=== PATIENT | female | born 1960 | race Caucasian/White ===

== ENCOUNTER 2016-06-06 11:45 | Outpatient (CLI) ==
[2015-11-13 15:40] VITALS: BMI 33.5
[2016-06-06 13:29] LABS: BASOPHILS # (AUTO) 0.1 K/uL (0-0.2); BASOPHILS % (AUTO) 1.1 % (0.0-3.0); EOSINOPHILS # (AUTO) 0.5 K/ul (0.0-0.7); EOSINOPHILS % (AUTO) 7.7 % (0.0-7.0); HEMATOCRIT 42.3 % (37.0-47.0); HEMOGLOBIN 14.1 g/dl (12.0-16.0); IMMATURE GRANULOCYTE % (AUTO) 0.2 % (0.0-5.0); LYMPHOCYTES # (AUTO) 2.1 K/uL (0.60-3.4); LYMPHOCYTES % (AUTO) 32.5 (10.0-50.0); MEAN CORPUSCULAR HEMOGLOBIN 32.1 pg (27.0-31.0); MEAN CORPUSCULAR HGB CONC 33.3 (31.8-35.4); MEAN CORPUSCULAR VOLUME 96.4 fl (81.0-99.0); MONOCYTES # (AUTO) 0.5 K/uL (0.4-2.0); MONOCYTES % (AUTO) 7.1 (0-10); NEUTROPHILS # (AUTO) 3.3 K/ul (2.0-6.9); NEUTROPHILS % (AUTO) 51.4; PLATELET COUNT 221 10^3/uL (140-440); RED BLOOD COUNT 4.39 10^6/ul (4.20-5.40); WHITE BLOOD COUNT 6.34 K/ul (4.6-10.2)
[2016-06-06 13:47] LABS: ALBUMIN/GLOBULIN RATIO 1.11; ANION GAP 16.4; BILIRUBIN,TOTAL 0.48 mg/dL (0.00-1.20); BUN/CREATININE RATIO 16.43; CALCIUM 9.9 mg/dL (8.2-10.2); CHOL/HDL RATIO 5.5 (4.5-5.5); CREATININE 0.73 mg/dL (0.60-1.30); POTASSIUM 4.4 mmol/L (3.5-5.10); TOTAL PROTEIN 7.6 g/dL (6.4-8.2)
== END 2016-06-06 11:46 | disposition home or self-care (01) ==
LOC: LAB 11:45
PROVIDERS: ATTEND Nurse Practitioner Family
DX: E11.9 Type 2 diabetes mellitus without complications (principal); E78.5 Hyperlipidemia, unspecified; G62.9 Polyneuropathy, unspecified; I10 Essential (primary) hypertension
CPT/HCPCS: 36415; 80053; 80061; 83036; 85025

== ENCOUNTER 2016-09-25 12:41 | Emergency (ER) ==
[2016-09-25 12:42] VITALS: BMI 33.5
[2016-09-25 12:53] VITALS: BP 145/87; TEMP 99.2
--- NOTE | 2016-09-25 13:52 | CT ---
EXAM: CT of the chest without contrast History: Chest pain. Comparison: Chest CT 07/23/2013 Technique: Multiplanar CT images through the thorax were obtained without the administration of IV contrast Findings: Heart size is normal. No pericardial effusion. Coronary artery calcifications. Great v essels are grossly unremarkable on this noncontrast study. No pathologically enlarged thoracic lymp h nodes. No consolidation. Dependent atelectasis. No pleural fluid and no pneumothorax. No suspic ious lung masses or lung nodules. Cholelithiasis and gallbladder distension. Right renal calculi with the largest measuring 7 mm. Co lonic diverticulosis. No acute osseous abnormalities. Impression: 1. No evidence for pneumonia. 2. Coronary artery disease. 3. Dependent atelectasis. 4. Cholelithiasis and gallbladder distension. 5. Right nephrolithiasis.
--- NOTE | 2016-09-25 14:03 | ED.PDOC ---
General ED Provider: Dr. TRICIA TERRELL Chief Complaint: Chest Wall Injury/Pain Stated Complaint: CHEST WALL PAIN LEFT SIDED Time Seen by Physician: 13:00 (1 WEEK PAIN FELT SOMETHING POP AFTER BENDING) Mode of Arrival: Walk-In Information Source: Patient Exam Limitations: No limitations [facility] Nursing and Triage Documentation Reviewed and Agree: Yes Trauma/Injury Complaint Exam - Trauma Complaint/Exam Location of Pain or Injury: Reports: Chest Mechanism of Injury: Reports: Fall Onset/Duration: 7DAYS Symptoms Are: Still present Timing of Treatment: Delayed Initial Severity: Moderate Current Severity: Mild Character: Reports: Dull Aggravating: Reports: None Alleviating: Reports: None Associated Signs and Symptoms: Denies: LOC, Confusion, Memory loss, Lethargy, Vomiting, Bleeding, Bruising, Swelling, Extremity disuse, Painful respiration, Hoarseness, Dysphagia, Hemoptysis, Significant blood loss Related History: Reports: Similar episode : No Penetrating Injury Risk Factors: Reports: None Nexus Low Risk Criteria: No post-midline CS tender, No evidence of intoxicat., No Altered LOC, No focal neuro deficit, No distracting injuries Glascow Coma Scale (see protocol): 15 Trauma Findings: Absent: [place] eyes, Hemotympanum, Nasal deformity, Dental tenderness, Dental injury, Dental malocclusion, Neck tenderness, Neck spasm, SubQ Air, Crepitus, Airway obstructed, Trachea displaced, Labored respirations, Decreased breath sounds, Muffled heart sounds, Weak pulses, Absent pulses, Abdominal distention, Pelvic tenderness Review of Systems - Review Of Systems Constitutional: Reports: No symptoms Eyes: Reports: No symptoms Ears, Nose, Mouth, Throat: Reports: No symptoms Respiratory: Reports: No symptoms Cardiac: Reports: Chest pain (WALL PAIN LEFT SIDED ) GI: Reports: No symptoms : Reports: No symptoms Musculoskeletal: Reports: No symptoms Skin: Reports: No symptoms Neurological: Reports: No symptoms Endocrine: Reports: No symptoms Hematologic/Lymphatic: Reports: No symptoms All Other Systems: Reviewed and Negative Past Medical History - Past Medical History Endocrine: Reports: DM 2, Dyslipidemia Cardiovascular: Reports: Hypertension (DR BECERRA MY HEARTIS HEALTHY A HORSE -HE DIDN'T SAY NOTHING ABOUT SMOKING) Respiratory: Reports: None Hematological: Reports: Anemia Gastrointestinal: Reports: PUD (20 years ago does not recall tests denies treatment) Genitourinary: Reports: None Neuro/Psych: Reports: Depression, Bipolar Disorder (manic depressive disorder per patient), PTSD Musculoskeletal: Reports: None Cancer: Reports: None Last Menstrual Period: NA Other Pertinent Past Medical History: PTSD, MDD - Surgical History General Surgical History: Reports: Hysterectomy ( X3, PARTIAL HYSTERECTOMY, TONSILS), , Tonsillectomy - Family History Family History: Reports: Heart (mother), Cancer (colon father) - Social History Smoking Status: Current every day smoker, Heavy tobacco smoker Hx Substance Use: No Alcohol Screening: None Physical Exam - Physical Exam Appearance: Well-appearing, No pain distress, Well-nourished Eyes: JONO, EOMI, Conjunctiva clear ENT: Ears normal, Nose normal, Oropharynx normal Respiratory: Airway patent, Breath sounds clear, Breath sounds equal, Respirations nonlabored Cardiovascular: RRR, Pulses normal, No rub, No murmur GI/: Soft, Nontender, No masses, Bowel sounds normal, No Organomegaly Musculoskeletal: Normal strength, ROM intact, No edema, No calf tenderness Skin: Warm, Dry, Normal color Neurological: Sensation intact, Motor intact, Reflexes intact, Cranial nerves intact, Alert, Oriented Psychiatric: Affect appropriate, Mood appropriate Interpretation - Radiology Interpretation Radiology Interpretation By: Radiologist Radiology Results: No acute changes Critical Care Note - Critical Care Note Total Time (mins): 0 Course - Course Orders, Labs, Meds: Orders Category Date Time Status CT CHEST W/O CONTRAST Stat RADS 09/25/16 13:03 Completed Vital Signs: Temp Pulse Resp BP Pulse Ox 09/25/16 12:45 99.2 F 93 H 18 145/87 H 95 Departure - Departure Time of Disposition: 14:03 (SEE WITH STAFF ) Disposition: HOME SELF-CARE Discharge Problem: Chest wall pain, Chest injury, Chest wall pain Instructions: Chest Wall Pain (ED), Noncardiac Chest Pain (ED) Condition: Good Pt referred to PMD for follow-up: No Allergies/Adverse Reactions: Allergies No Known Allergies Allergy (Uncoded 09/25/16 13:08) Home Medications: Ambulatory Orders Risperidone [Risperdal] 2 mg PO BID 01/23/14 Clonazepam [Klonopin] 0.5 mg PO BID #60 03/16/16 Gabapentin 600 mg PO TID 06/06/16 Hydrocodone/Acetaminophen [[place] 10-325 Tablet] 1 each PO Q8HR #12 tablet Disposition Discussed With: Patient
== END 2016-09-25 14:38 | disposition home or self-care (01) ==
LOC: ED 12:41
DX: R07.89 Other chest pain (principal); N20.0 Calculus of kidney; K80.18 Calculus of gallbladder with other cholecystitis without obstruction; W19.XXXA Unspecified fall, initial encounter; F17.210 Nicotine dependence, cigarettes, uncomplicated
CPT/HCPCS: 99283

== ENCOUNTER 2017-03-13 13:25 | Outpatient (CLI) ==
[2017-03-13 13:45] LABS: BASOPHILS # (AUTO) 0.1 K/uL (0-0.2); BASOPHILS % (AUTO) 1.1 % (0.0-3.0); EOSINOPHILS # (AUTO) 0.3 K/ul (0.0-0.7); EOSINOPHILS % (AUTO) 6.1 % (0.0-7.0); HEMATOCRIT 39.9 % (37.0-47.0); HEMOGLOBIN 13.7 g/dl (12.0-16.0); IMMATURE GRANULOCYTE % (AUTO) 0.2 % (0.0-5.0); LYMPHOCYTES # (AUTO) 1.7 K/uL (0.60-3.4); LYMPHOCYTES % (AUTO) 36.6 (10.0-50.0); MEAN CORPUSCULAR HEMOGLOBIN 32.8 pg (27.0-31.0); MEAN CORPUSCULAR HGB CONC 34.3 (31.8-35.4); MEAN CORPUSCULAR VOLUME 95.5 fl (81.0-99.0); MONOCYTES # (AUTO) 0.5 K/uL (0.4-2.0); MONOCYTES % (AUTO) 9.8 (0-10); NEUTROPHILS # (AUTO) 2.1 K/ul (2.0-6.9); NEUTROPHILS % (AUTO) 46.2; PLATELET COUNT 196 10^3/uL (140-440); RED BLOOD COUNT 4.18 10^6/ul (4.20-5.40); WHITE BLOOD COUNT 4.59 K/ul (4.6-10.2)
[2017-03-13 19:22] LABS: ALBUMIN 3.9 g/dL (3.4-5.0); ALBUMIN/GLOBULIN RATIO 1.08; ANION GAP 14.9; BILIRUBIN,TOTAL 0.81 mg/dL (0.00-1.20); BUN/CREATININE RATIO 27.69; CALCIUM 9.7 mg/dL (8.2-10.2); CHOL/HDL RATIO 5.8 (4.5-5.5); CREATININE 0.65 mg/dL (0.60-1.30); POTASSIUM 3.9 mmol/L (3.5-5.10); TOTAL PROTEIN 7.5 g/dL (6.4-8.2)
== END 2017-03-13 13:26 | disposition home or self-care (01) ==
LOC: LAB 13:25
PROVIDERS: ATTEND Nurse Practitioner Family
DX: E11.9 Type 2 diabetes mellitus without complications (principal); E78.5 Hyperlipidemia, unspecified; I25.10 Atherosclerotic heart disease of native coronary artery without angina pectoris; Z72.0 Tobacco use
CPT/HCPCS: 36415; 80053; 80061; 83036; 84443; 85025

== ENCOUNTER 2017-06-11 13:36 | Outpatient (CLI) | END 2017-06-11 13:37 | disposition home or self-care (01) | LOC: RHC-LAB 13:36 | PROVIDERS: ATTEND Nurse Practitioner Family | DX: I25.10 Atherosclerotic heart disease of native coronary artery without angina pectoris (principal); I10 Essential (primary) hypertension; E78.5 Hyperlipidemia, unspecified; E11.9 Type 2 diabetes mellitus without complications; Z72.0 Tobacco use | CPT/HCPCS: 36415; 80053; 80061; 83036; 85025 ==

== ENCOUNTER 2017-09-18 11:36 | Outpatient (CLI) | END 2017-09-18 11:37 | disposition home or self-care (01) | LOC: RHC-LAB 11:36 | PROVIDERS: ATTEND Nurse Practitioner Family | DX: E11.9 Type 2 diabetes mellitus without complications (principal); I10 Essential (primary) hypertension; E78.5 Hyperlipidemia, unspecified | CPT/HCPCS: 36415; 80053; 80061; 83036 ==

== ENCOUNTER 2018-01-02 12:39 | Outpatient (CLI) | END 2018-01-02 12:40 | disposition home or self-care (01) | LOC: RHC-LAB 12:39 | PROVIDERS: ATTEND Nurse Practitioner Family | DX: E11.9 Type 2 diabetes mellitus without complications (principal); E78.5 Hyperlipidemia, unspecified; I10 Essential (primary) hypertension | CPT/HCPCS: 36415; 80053; 80061; 83036; 85025 ==

== ENCOUNTER 2018-01-15 12:46 | Outpatient (CLI) ==
--- NOTE | 2018-01-15 14:48 | DI ---
EXAM: PA and lateral views of the chest HISTORY: Shortness of breath COMPARISON: Chest x-ray 07/23/[address] chest 09/25/2016 FINDINGS: The cardiomediastinal silhouette is normal. There is no pneumothorax or pleural effusion. There is no consolidation, nodule or mass. The osseous structures are stable. IMPRESSION: No acute cardiopulmonary process
== END 2018-01-15 12:47 | disposition home or self-care (01) ==
LOC: CAR 12:46
PROVIDERS: ATTEND Nurse Practitioner Family
DX: R06.02 Shortness of breath (principal); Z72.0 Tobacco use

== ENCOUNTER 2018-01-31 15:02 | Emergency (ER) ==
[2018-01-31 15:04] VITALS: BP 140/76; TEMP 97.5; BMI 35.2
--- NOTE | 2018-01-31 17:55 | ED.PDOC ---
General ED Provider: Dr. AN RINALDI Chief Complaint: Extremity Pain/Injury Stated Complaint: Awakened this morning with some reddness of lt distal pretibial surface with discomfort of her leg. Positive chronic edema of LLE which worsens as day progresses. Denies temperature changes. Time Seen by Physician: 17:20 Mode of Arrival: Walk-In Information Source: Patient Exam Limitations: No limitations Primary Care Provider: FERNANDO RODRIGUEZ Nursing and Triage Documentation Reviewed and Agree: Yes Does patient meet sepsis criteria?: No System Inflammatory Response Syndrome: Not Applicable Sepsis Protocol: For patient's 13 years and over: Temp is 96.8 and below OR 101 and greater Pulse >90 BPM Resp >20/minute Acutely Altered Mental Status Are patient's symptoms suggestive of a new infection, such as: -Pneumonia -Skin, Soft Tissue -Endocarditis -UTI -Bone, Joint Infection -Implantable Device -Acute Abdominal Infection -Wound Infection -Meningitis -Blood Stream Catheter Infection -Unknown Review of Systems - Review Of Systems Constitutional: Reports: Malaise Eyes: Reports: No symptoms Ears, Nose, Mouth, Throat: Reports: No symptoms Respiratory: Reports: No symptoms Cardiac: Reports: Edema GI: Reports: No symptoms : Reports: No symptoms Musculoskeletal: Reports: Muscle pain (lt leg) Skin: Reports: No symptoms Neurological: Reports: No symptoms Endocrine: Reports: No symptoms Hematologic/Lymphatic: Reports: No symptoms All Other Systems: Reviewed and Negative Past Medical History - Past Medical History Endocrine: Reports: DM 2, Dyslipidemia Cardiovascular: Reports: Hypertension (DR FELIXAYS MY HEARTIS HEALTHY A HORSE -HE DIDN'T SAY NOTHING ABOUT SMOKING) Respiratory: Reports: None Hematological: Reports: Anemia Gastrointestinal: Reports: PUD (20 years ago does not recall tests denies treatment) Genitourinary: Reports: None Neuro/Psych: Reports: Depression, Bipolar Disorder (manic depressive disorder per patient), PTSD Musculoskeletal: Reports: None Cancer: Reports: None Last Menstrual Period: HYSTERECTOMY Other Pertinent Past Medical History: PTSD, MDD - Surgical History General Surgical History: Reports: Hysterectomy ( X3, PARTIAL HYSTERECTOMY, TONSILS), , Tonsillectomy - Family History Family History: Reports: Heart (mother), Cancer (colon father) - Social History Smoking Status: Current every day smoker, Heavy tobacco smoker Hx Substance Use: No Alcohol Screening: None - Immunizations Tetanus Shot up to Date: Yes Physical Exam - Physical Exam Appearance: Ill-appearing, Obese Ill-appearing: Mild Pain Distress: Mild Eyes: JONO, EOMI, Conjunctiva clear ENT: Ears normal, Nose normal, Oropharynx normal Neck: Supple Respiratory: Airway patent, Breath sounds clear, Breath sounds equal, Respirations nonlabored Cardiovascular: RRR, Pulses normal, No rub, No murmur GI/: Soft, Nontender, No masses, Bowel sounds normal, No Organomegaly Musculoskeletal: Normal strength, ROM intact, No calf tenderness, Edema (lt pre tibial and foot-ankle) Skin: Warm, Dry, Normal color (erythrematous) Neurological: Sensation intact, Motor intact, Reflexes intact, Cranial nerves intact, Alert, Oriented Psychiatric: Affect appropriate Re-Evaluation - Re-Evaluation Time of Re-Evaluation: 18:45 Status: Improved Vital Signs Stable: Yes Appearance: NAD Lungs: Clear Skin: Warm and Dry Neuro: Alert and Oriented X3 CV: RRR Critical Care Note - Critical Care Note Total Time (mins): 0 Course - Course Hematology/Chemistry: 01/31/18 18:14 01/31/18 18:14 Orders, Labs, Meds: Lab Review 01/31/18 01/31/18 18:14 18:14 WBC 10.87 H RBC 4.39 Hgb 14.1 Hct 40.8 MCV 92.9 MCH 32.1 H MCHC 34.6 RDW Coeff of Leon 12.7 Plt Count 173 Immature Gran % (Auto) 0.4 Neut % (Auto) 74.6 Lymph % (Auto) 16.4 [place] % (Auto) 6.7 Eos % (Auto) 1.4 Baso % (Auto) 0.5 Immature Gran # (Auto) 0.0 Neut # (Auto) 8.1 H Lymph # (Auto) 1.8 [place] # (Auto) 0.7 Eos # (Auto) 0.2 Baso # (Auto) 0.1 Sodium 133.5 L Potassium 3.60 Chloride 98.7 Carbon Dioxide 24.7 Anion Gap 13.70 BUN 13.7 Creatinine 0.57 L Estimated GFR (MDRD) 110.00 BUN/Creatinine Ratio 24.03 Glucose 219.0 H Calcium 9.81 Total Bilirubin 0.73 AST 35.6 ALT 21.1 Alkaline Phosphatase 67.7 Total Protein 8.32 H Albumin 4.67 Globulin 3.65 Albumin/Globulin Ratio 1.27 Orders Category Date Time Status EKG-(ED ONLY) Stat CARDIO 01/31/18 18:04 Ordered CBC W/ AUTO DIFF Stat LAB 01/31/18 18:14 Completed CMP [COMPREHENSIVE METABOLIC PANEL] Stat LAB 01/31/18 18:14 Completed Ceftriaxone Sodium [Rocephin] MEDS 01/31/18 18:33 Discontinued 1 gm IM ONCE STA Lidocaine HCl/Pf [Lidocaine HCl 1% Sdv] MEDS 01/31/18 18:33 Discontinued 2.1 ml IM ONCE STA Medications Discontinued Medications Generic Name Dose Route Start Last Admin Trade Name Lukeq PRN Reason Stop Dose Admin Ceftriaxone Sodium 1 gm 01/31/18 18:33 01/31/18 18:53 Rocephin IM 01/31/18 18:34 1 gm ONCE STA Administration Lidocaine HCl 2.1 ml 01/31/18 18:33 01/31/18 18:53 Lidocaine Hcl 1% Sdv IM 01/31/18 18:34 5 ml ONCE STA Administration Vital Signs: Temp Pulse Resp BP Pulse Ox 01/31/18 15:03 97.5 F L 116 H 20 140/76 96 JENNIFER Risk Score JENNIFER Risk Score: Risk Score Odds of by 30D 0 0.1 (0.1-0.2) 1 0.3 (0.2-0.3) 2 0.4 (0.3-0.5) 3 0.7 (0.6-0.9) 4 1.2 (1.0-1.5) 5 2.2 (1.9-2.6) 6 3.0 (2.5-3.6) 7 4.8 (3.8-6.1) Departure - Departure Time of Disposition: 18:50 Disposition: HOME SELF-CARE Discharge Problem: Acute stasis dermatitis of left lower extremity, Cellulitis, Peripheral vascular insufficiency Instructions: Stasis Dermatitis (ED), Peripheral Vascular Disease (ED), Leg Edema (ED) Condition: Fair Pt referred to PMD for follow-up: Yes (next week) IPMP verified?: No Additional Instructions: Keep lt lower extremity elevation Monitor for edema and reddness If condition worsens return to er Allergies/Adverse Reactions: Allergies varenicline tartrate [From Chantix] Allergy (Unverified 01/31/18 15:05) rash Home Medications: Ambulatory Orders Quetiapine Fumarate [Seroquel] 100 mg PO BEDTIME 09/20/17 Cephalexin [Keflex] 500 mg PO BID #14 capsule 01/31/18 Paroxetine HCl [Paxil] 20 mg PO DAILY 01/31/18 Transfer Form Completed: No Disposition Discussed With: Patient Skin Complaint Exam - Skin Rash/Itching Complaint/Exam Onset/Duration: earlier today Symptoms Are: Still present Initial Severity: Moderate Current Severity: Moderate Location: lt pretibial surface Potential Exposures: Reports: Other Prior Treatment: no Aggravating: Reports: None Alleviating: Reports: None Associated Signs and Symptoms: Denies: Difficulty breathing, Fever, Chills Skin Findings: Present: Dry scaly skin, Lesions (Reddened and scaling -tender to touch) Differential Diagnoses: Other (venous stasis dermatitis)
[2018-01-31] MEDS ORDERED: ANCEF IM STA (18:05)
[2018-01-31] MEDS ORDERED: LIDOCAINE HCL 1% SDV IM STA (18:33)
[2018-01-31] MEDS ORDERED: ROCEPHIN IM STA (18:33)
== END 2018-01-31 19:35 | disposition home or self-care (01) ==
LOC: ED 15:02
DX: I87.2 Venous insufficiency (chronic) (peripheral) (principal); L03.119 Cellulitis of unspecified part of limb; E11.9 Type 2 diabetes mellitus without complications; E78.5 Hyperlipidemia, unspecified; I10 Essential (primary) hypertension; F17.210 Nicotine dependence, cigarettes, uncomplicated
CPT/HCPCS: 36415; 80053; 85025; 93005; 93010; 96372; 99283

== ENCOUNTER 2018-05-31 10:07 | Outpatient (CLI) ==
[2018-03-05 12:32] VITALS: BMI 34.9
== END 2018-05-31 10:08 | disposition home or self-care (01) ==
LOC: RHC-LAB 10:07
PROVIDERS: ATTEND Nurse Practitioner Family
DX: E78.5 Hyperlipidemia, unspecified (principal); E11.9 Type 2 diabetes mellitus without complications
CPT/HCPCS: 36415; 80053; 80061; 83036

== ENCOUNTER 2018-08-29 10:50 | Outpatient (CLI) ==
[2018-03-05 12:32] VITALS: BMI 34.9
== END 2018-08-29 10:51 | disposition home or self-care (01) ==
LOC: RHC-LAB 10:50
PROVIDERS: ATTEND Nurse Practitioner Family
DX: E11.9 Type 2 diabetes mellitus without complications (principal); E78.5 Hyperlipidemia, unspecified; Z72.0 Tobacco use
CPT/HCPCS: 36415; 80053; 80061; 83036; 85025

== ENCOUNTER 2018-10-11 17:15 | Emergency (ER) ==
[2018-10-11 17:19] VITALS: BP 136/83; TEMP 97
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
== END 2018-10-11 19:00 | disposition home or self-care (01) ==
LOC: ED 17:15
DX: S13.9XXA Sprain of joints and ligaments of unspecified parts of neck, initial encounter (principal); S23.8XXA Sprain of other specified parts of thorax, initial encounter; V47.6XXA Car passenger injured in collision with fixed or stationary object in traffic accident, initial encounter; F17.210 Nicotine dependence, cigarettes, uncomplicated
CPT/HCPCS: 99283

== ENCOUNTER 2021-10-13 15:48 | Observation (INO) ==
[2021-10-13] MEDS ORDERED: SODIUM CHLORIDE 1,000 ML IV STA (15:54)
--- NOTE | 2021-10-13 15:56 | ED.PDOC ---
General <GIORGIO MCINTOSH MD - Last Filed: 10/13/21 18:19> ED Provider: Dr. GIORGIO MCINTOSH MD Chief Complaint: Syncope Stated Complaint: episode of near syncope today causing her to fall on her left shoulder and flank, mild positional ache pain, no bleeding, gcs 15, no fever, hx obese, copd, htn, dm, schizophrenia Time Seen by Provider: 10/13/21 15:50 Mode of Arrival: Ambulance Information Source: Patient and EMT Primary Care Provider: JASVIR FISH APRN Sepsis Protocol: For patient's 13 years and over: Temp is 96.8 and below OR 101 and greater Pulse >90 BPM Resp >20/minute Acutely Altered Mental Status Are patient's symptoms suggestive of a new infection, such as: -Pneumonia -Skin, Soft Tissue -Endocarditis -UTI -Bone, Joint Infection -Implantable Device -Acute Abdominal Infection -Wound Infection -Meningitis -Blood Stream Catheter Infection -Unknown <ROMELIA THOMAS MD - Last Filed: 10/13/21 22:58> Nursing and Triage Documentation Reviewed and Agree: Yes Does patient meet sepsis criteria?: No System Inflammatory Response Syndrome: Not Applicable Review of Systems <GIORGIO MCINTOSH MD - Last Filed: 10/13/21 18:19> Review Of Systems Constitutional: Denies Fever Eyes: Denies Vision change Ears, Nose, Mouth, Throat: Denies Throat pain Respiratory: Denies Short of air Cardiac: Reports Chest pain GI: Reports Abdominal pain; Denies Vomiting : Denies Incontinence Musculoskeletal: Reports Joint pain Skin: Denies Cyanosis Neurological: Reports Emotional problems; Denies Cognitive dysfunction All Other Systems: Other PFSH <GIORGIO MCINTOSH MD - Last Filed: 10/13/21 18:19> Medical History Alcohol abuse, daily use Chest heaviness Colonoscopy refused Contusion, chest wall Diabetes mellitus Diabetic neuropathy Drinks beer Edema of left foot Encounter for diabetic foot exam GERD (gastroesophageal reflux disease) Hearing loss of both ears Hospital discharge follow-up Hyperlipidemia Hypertension Influenza vaccination administered at current visit Mammogram declined MDD (major depressive disorder) Nail hypertrophy Non-insulin dependent type 2 diabetes mellitus Obesity Pain, dental Papanicolaou smear declined Pneumococcal vaccination declined Pneumococcal vaccination declined Poor dentition PTSD (post-traumatic stress disorder) Family History Mother Diabetes Myocardial infarction FATHER Cancer Grandfather/Grandmother Diabetes Myocardial infarction SISTER Myocardial infarction Social History Smoking and tobacco status: Current every day smoker Tobacco type: cigarettes Tobacco: How many years used: 40 Quit status: not considering quitting Second hand smoke exposure: Yes Alcohol intake: current Alcohol intake frequency: holidays/special occasions only Alcohol type: beer Counseling given: No Substance use type: does not use Kaylah/mormonism: Denominational Special kaylah needs: No Agree to transfusion: Yes Adopted: No Caregiver/support person: Yes Foster care: No Household members: none Housing: apartment Marital status: W / Lives independently: Yes Number of children: 3 Highest education level completed: 10th grade Financial difficulty paying for basics: hard service: No Current occupational status: disabled Current occupational exposures/hazards: No Pets and animals: No Leisure activites: other History of recent travel: No Do you think of yourself as: straight/heterosexual Current gender identity: female Seatbelt use: always Helmet use: No Drives intoxicated or rides with intoxicated wrecker driver: No Water heater temperature set < 120 degrees: Yes Working smoke detector in home: Yes Fire extinguisher in home: Yes Carbon monoxide detector in home: Yes Firearms in home: No Additional social history: pt has 3 children that were adopted, they are aware who she is as they were adopted by family members. Surgical History History of section Status post hysterectomy Status post tonsillectomy Female Reproductive History Menstrual Hx Hysterectomy: Yes Hx Tubal Ligation: No Physical Exam <GIORGIO MCINTOSH MD - Last Filed: 10/13/21 18:19> Physical Exam Appearance: Reports Well-appearing Ill-appearing: None Pain Distress: Mild Eyes: Reports JONO, EOMI and Conjunctiva clear ENT: Reports Oropharynx normal Neck: Supple Respiratory: Reports Airway patent, Breath sounds clear and Breath sounds equal Cardiovascular: Reports RRR GI/: Reports Soft and Tender (no rebound) Musculoskeletal: Reports Other (tender left deltoid and chest wall, no crep) Skin: Reports Warm and Dry Neurological: Reports Alert and Oriented Psychiatric: Reports Affect appropriate Interpretation <GIORGIO MCINTOSH MD - Last Filed: 10/13/21 18:19> EKG Interpretation Time of EKG #1: 18:19 Rate: Normal Rhythm: Sinus Interpretation: no stemi <ROMELIA THOMAS MD - Last Filed: 10/13/21 22:58> Radiology Interpretation Radiology Interpretation By: Radiologist Radiology Results: Negative Exam Interpreted: CT Scan <ROMELIA THOMAS MD - Last Filed: 10/13/21 22:58> Critical Care Note Total Critical Care Time (mins): 30 Course <GIORGIO MCINTOSH MD - Last Filed: 10/13/21 18:19> Course Hematology/Chemistry: 10/13/21 16:36 10/13/21 16:36 Orders, Labs, Meds: Lab Review 10/13/21 10/13/21 10/13/21 16:36 16:36 16:36 WBC 7.08 RBC 3.67 L Hgb 11.7 L Hct 35.4 L MCV 96.5 MCH 31.9 H MCHC 33.1 RDW Coeff of Leon 12.3 Plt Count 254 Immature Gran % (Auto) 0.1 Neut % (Auto) 55.2 Lymph % (Auto) 29.7 [place] % (Auto) 8.3 Eos % (Auto) 5.9 Baso % (Auto) 0.8 Neut # (Auto) 3.9 Lymph # (Auto) 2.1 [place] # (Auto) 0.6 Eos # (Auto) 0.4 Baso # (Auto) 0.1 Immature Gran # (Auto) 0.0 PT INR Sodium 140.0 Potassium 3.98 Chloride 106.2 Carbon Dioxide 23.2 Anion Gap 14.58 BUN 14.2 Creatinine 0.58 L Estimated GFR (MDRD) 106.00 BUN/Creatinine Ratio 24.48 Glucose 112.0 H Lactic Acid 2.24 H Calcium 10.12 Total Bilirubin 0.26 AST 22.9 ALT 15.2 Alkaline Phosphatase 42.8 L Troponin I < 0.012 Total Protein 7.30 Albumin 4.25 Globulin 3.05 Albumin/Globulin Ratio 1.39 Procalcitonin Urine Color Urine Clarity Urine pH Ur Specific [place] Urine Protein Urine Glucose (UA) Urine Ketones Urine Blood Urine Nitrite Urine Bilirubin Urine Urobilinogen Ur Leukocyte Esterase Urine Microscopic RBC Urine Microscopic WBC Ur Squamous Epith Cells Urine Bacteria Urine Opiates Screen Ur Oxycodone Screen Urine Methadone Screen Ur Propoxyphene Screen Ur Barbiturates Screen U Tricyclic Antidepress Ur Phencyclidine Scrn Ur Amphetamine Screen U Methamphetamines Scrn U Benzodiazepines Scrn Urine Cocaine Screen U Cannabinoids Screen Plasma/Serum Alcohol < 10.0 SARS CoV-2 RNA Rapid SERGIO 10/13/21 10/13/21 10/13/21 16:36 16:36 17:30 WBC RBC Hgb Hct MCV MCH MCHC RDW Coeff of Leon Plt Count Immature Gran % (Auto) Neut % (Auto) Lymph % (Auto) [place] % (Auto) Eos % (Auto) Baso % (Auto) Neut # (Auto) Lymph # (Auto) [place] # (Auto) Eos # (Auto) Baso # (Auto) Immature Gran # (Auto) PT 10.4 INR 1.00 Sodium Potassium Chloride Carbon Dioxide Anion Gap BUN Creatinine Estimated GFR (MDRD) BUN/Creatinine Ratio Glucose Lactic Acid 3.06 H D Calcium Total Bilirubin AST ALT Alkaline Phosphatase Troponin I Total Protein Albumin Globulin Albumin/Globulin Ratio Procalcitonin < 0.05 Urine Color Urine Clarity Urine pH Ur Specific [place] Urine Protein Urine Glucose (UA) Urine Ketones Urine Blood Urine Nitrite Urine Bilirubin Urine Urobilinogen Ur Leukocyte Esterase Urine Microscopic RBC Urine Microscopic WBC Ur Squamous Epith Cells Urine Bacteria Urine Opiates Screen Ur Oxycodone Screen Urine Methadone Screen Ur Propoxyphene Screen Ur Barbiturates Screen U Tricyclic Antidepress Ur Phencyclidine Scrn Ur Amphetamine Screen U Methamphetamines Scrn U Benzodiazepines Scrn Urine Cocaine Screen U Cannabinoids Screen Plasma/Serum Alcohol SARS CoV-2 RNA Rapid SERGIO 10/13/21 10/13/21 10/13/21 17:30 19:04 19:04 WBC RBC Hgb Hct MCV MCH MCHC RDW Coeff of Leon Plt Count Immature Gran % (Auto) Neut % (Auto) Lymph % (Auto) [place] % (Auto) Eos % (Auto) Baso % (Auto) Neut # (Auto) Lymph # (Auto) [place] # (Auto) Eos # (Auto) Baso # (Auto) Immature Gran # (Auto) PT INR Sodium Potassium Chloride Carbon Dioxide Anion Gap BUN Creatinine Estimated GFR (MDRD) BUN/Creatinine Ratio Glucose Lactic Acid Calcium Total Bilirubin AST ALT Alkaline Phosphatase Troponin I < 0.012 Total Protein Albumin Globulin Albumin/Globulin Ratio Procalcitonin Urine Color Yellow Urine Clarity Clear Urine pH 5.5 Ur Specific [place] 1.020 Urine Protein Negative Urine Glucose (UA) Negative Urine Ketones Negative Urine Blood Trace-intact H Urine Nitrite Negative Urine Bilirubin Negative Urine Urobilinogen 0.2 Ur Leukocyte Esterase 1+ H Urine Microscopic RBC 0-2 Urine Microscopic WBC 20-30 Ur Squamous Epith Cells 0-2 Urine Bacteria 3+ Urine Opiates Screen Negative Ur Oxycodone Screen Negative Urine Methadone Screen Negative Ur Propoxyphene Screen Negative Ur Barbiturates Screen Negative U Tricyclic Antidepress Positive H Ur Phencyclidine Scrn Negative Ur Amphetamine Screen Negative U Methamphetamines Scrn Negative U Benzodiazepines Scrn Positive H Urine Cocaine Screen Negative U Cannabinoids Screen Negative Plasma/Serum Alcohol SARS CoV-2 RNA Rapid SERGIO 10/13/21 19:57 WBC RBC Hgb Hct MCV MCH MCHC RDW Coeff of Leon Plt Count Immature Gran % (Auto) Neut % (Auto) Lymph % (Auto) [place] % (Auto) Eos % (Auto) Baso % (Auto) Neut # (Auto) Lymph # (Auto) [place] # (Auto) Eos # (Auto) Baso # (Auto) Immature Gran # (Auto) PT INR Sodium Potassium Chloride Carbon Dioxide Anion Gap BUN Creatinine Estimated GFR (MDRD) BUN/Creatinine Ratio Glucose Lactic Acid Calcium Total Bilirubin AST ALT Alkaline Phosphatase Troponin I Total Protein Albumin Globulin Albumin/Globulin Ratio Procalcitonin Urine Color Urine Clarity Urine pH Ur Specific [place] Urine Protein Urine Glucose (UA) Urine Ketones Urine Blood Urine Nitrite Urine Bilirubin Urine Urobilinogen Ur Leukocyte Esterase Urine Microscopic RBC Urine Microscopic WBC Ur Squamous Epith Cells Urine Bacteria Urine Opiates Screen Ur Oxycodone Screen Urine Methadone Screen Ur Propoxyphene Screen Ur Barbiturates Screen U Tricyclic Antidepress Ur Phencyclidine Scrn Ur Amphetamine Screen U Methamphetamines Scrn U Benzodiazepines Scrn Urine Cocaine Screen U Cannabinoids Screen Plasma/Serum Alcohol SARS CoV-2 RNA Rapid SERGIO Negative Orders Category Date Time Status PLACE PATIENT OBSERVATION .TO MEDSURG (MONITORED BED ADMISSION 10/13/21 21:04 Active ) EKG-(ED ONLY) Stat CARDIO 10/13/21 15:51 Completed ACTIVITY .Up With Assistance CARE 10/13/21 21:04 Active BLOOD GLUCOSE MONITORING (MED/SURG) 0630,1100,1700,2100 CARE 10/13/21 21:06 Active GIVE HS SNACK 2100 CARE 10/13/21 21:06 Active INTAKE & OUTPUT Q8HR CARE 10/13/21 21:05 Active TELEMETRY MONITORING TELE CARE 10/13/21 21:05 Active VITAL SIGNS Q4HR CARE 10/13/21 21:05 Active ADA 1800 DAVID. DIET DIETARY 10/13/21 Breakfast Ordered HS SNACK DIETARY 10/13/21 Dinner Ordered Orthostatic Vital Signs [ED ORTHOSTATIC VITAL SIGNS] . EMERGENCY 10/13/21 17:18 Active ONCE BASIC METABOLIC PANEL DAILY@0600 LAB 10/14/21 06:00 Ordered BASIC METABOLIC PANEL DAILY@0600 LAB 10/15/21 06:00 Ordered BLOOD ALCOHOL Stat LAB 10/13/21 16:36 Completed BLOOD CULTURE (ED ONLY) Stat LAB 10/13/21 19:43 Received CBC W/ AUTO DIFF DAILY@0600 LAB 10/14/21 06:00 Ordered CBC W/ AUTO DIFF DAILY@0600 LAB 10/15/21 06:00 Ordered CBC W/ AUTO DIFF Stat LAB 10/13/21 16:36 Completed CMP [COMPREHENSIVE METABOLIC PANEL] Stat LAB 10/13/21 16:36 Completed CREATINE KINASE Q8H LAB 10/14/21 03:15 Ordered CREATINE KINASE Q8H LAB 10/14/21 11:15 Ordered DRUG SCREEN, URINE, RAPID Stat LAB 10/13/21 19:04 Completed LACTIC ACID Stat LAB 10/13/21 16:36 Completed LACTIC ACID Stat LAB 10/13/21 17:30 Completed PROCALCITONIN Stat LAB 10/13/21 16:36 Completed PT WITH INR Stat LAB 10/13/21 16:36 Completed SARS COV-2 RNA RAPID SERGIO Stat LAB 10/13/21 19:57 Completed TROPONIN I Q8H LAB 10/14/21 03:15 Ordered TROPONIN I Q8H LAB 10/14/21 11:15 Ordered TROPONIN I Stat LAB 10/13/21 16:36 Completed TROPONIN I Stat LAB 10/13/21 17:30 Completed URINALYSIS C & S IF INDICATED Stat LAB 10/13/21 19:04 Completed URINE CULTURE Stat LAB 10/13/21 19:28 Received Acetaminophen [Tylenol] MEDS 10/13/21 21:04 Ordered 650 mg PO Q4H PRN Benztropine Mesylate [Cogentin] MEDS 10/14/21 09:00 Ordered 0.5 mg PO BID Ceftriaxone/D5w 1 gm Premix [Rocephin 1 gm/50 ml D5w] MEDS 10/14/21 09:00 Ordered 1 gm in 50 ml IV DAILY Ceftriaxone/D5w 1 gm Premix [Rocephin 1 gm/50 ml D5w] MEDS 10/13/21 19:28 Discontinued 1 gm in 50 ml IV ONCE Duloxetine HCl [Cymbalta] MEDS 10/14/21 09:00 Ordered 60 mg PO BID Enoxaparin Sodium [Lovenox] MEDS 10/14/21 09:00 Ordered 40 mg SUBCUT DAILY Fenofibrate [Triglide] MEDS 10/13/21 21:30 Ordered See Dose Instructions PO .COMPLEX Hydrocodone Bit/Acetaminophen [[place] 5-325] MEDS 10/13/21 21:04 Ordered 1 tab PO Q6H PRN Hydroxyzine HCl [Atarax] MEDS 10/13/21 21:09 Ordered 25 mg PO TID PRN Lovastatin [Mevacor] MEDS 10/13/21 21:30 Ordered See Dose Instructions PO .COMPLEX Metformin HCl [Glucophage] MEDS 10/13/21 21:30 Ordered See Dose Instructions PO .COMPLEX Metoprolol Tartrate [Lopressor] MEDS 10/13/21 21:30 Ordered See Dose Instructions PO .COMPLEX Morphine Sulfate [Morphine 4 mg/ml Syringe] MEDS 10/13/21 20:06 Discontinued 4 mg IVP ONCE ONE Morphine Sulfate [Morphine 4 mg/ml Syringe] MEDS 10/13/21 21:04 Ordered 4 mg IVP Q6H PRN Nicotine 14 mg [Nicoderm 14 mg] MEDS 10/13/21 21:30 Ordered 1 patch TD QDAY Omeprazole [Prilosec] MEDS 10/13/21 21:30 Ordered See Dose Instructions PO .COMPLEX Ondansetron HCl/Pf [Zofran 4 mg/2 ml] MEDS 10/13/21 20:06 Discontinued 4 mg IVP ONCE STA Ondansetron HCl/Pf [Zofran 4 mg/2 ml] MEDS 10/13/21 21:04 Ordered 4 mg IVP Q6H PRN Prazosin HCl [Minipress] MEDS 10/13/21 21:30 Ordered 4 mg PO QHS Quetiapine Fumarate [Seroquel] MEDS 10/13/21 21:30 Ordered 300 mg PO QHS Sodium Chloride 0.9% [Sodium Chloride] 1,000 ml MEDS 10/13/21 21:30 Active IV 125 mls/hr Sodium Chloride 0.9% [Sodium Chloride] 1,000 ml MEDS 10/13/21 15:54 D iscontinued IV BOLUS gabapentin MEDS 10/14/21 09:00 Ordered 400 mg PO TID RESUSCITATION STATUS Routine OTHERS 10/13/21 21:04 Ordered CHEST, 1V AP ONLY Stat RADS 10/13/21 15:[address] ABDOMEN/PELVIS WO CONTRAST Stat RADS 10/13/21 15:[address] CERVICAL SPINE W/O CONTRAST Stat RADS 10/13/21 15:[address] CHEST W/O CONTRAST Stat RADS 10/13/21 15:[address] HEAD W/O CONTRAST Stat RADS 10/13/21 15:51 Completed SHOULDER, LEFT MIN 2V Stat RADS 10/13/21 15:51 Completed Medications Generic Name Dose Route Start Last Admin Trade Name Freq PRN Reason Stop Dose Admin Acetaminophen 650 mg 10/13/21 21:04 Acetaminophen 325 Mg Tablet PO Q4H PRN Fever and Mild Pain Hydrocodone Bitart/Acetaminophen 1 tab 10/13/21 21:04 Hydrocodone Bit/Acetaminophen 5/325 Mg Tablet PO Q6H PRN MODERATE PAIN Benztropine Mesylate 0.5 mg 10/14/21 09:00 Benztropine Mesylate 1 Mg Tablet PO BID RAVI Duloxetine HCl 60 mg 10/14/21 09:00 Duloxetine Hcl 30 Mg Capsule.Dr PO BID RAVI Enoxaparin Sodium 40 mg 10/14/21 09:00 Enoxaparin Sodium 40 Mg/0.4 Ml Syr SUBCUT DAILY RAVI Fenofibrate 0 mg 10/13/21 21:30 Fenofibrate 160 Mg Tablet PO .COMPLEX RAVI Hydroxyzine HCl 25 mg 10/13/21 21:09 Hydroxyzine Hcl 25 Mg Tablet PO TID PRN anxiety Sodium Chloride 1,000 mls @ 125 mls/hr 10/13/21 21:30 10/13/21 22:50 Sodium Chloride IV 125 mls/hr .Q8H RAVI Administration CEFTRIAXONE/D5W 1 GM PREMIX 1 gm in 50 mls @ 75 mls/hr 10/14/21 09:00 Rocephin 1 Gm/50 Ml D5w IV 10/17/21 08:59 DAILY RAVI Lovastatin 0 mg 10/13/21 21:30 Lovastatin 20 Mg Tablet PO .COMPLEX RAVI Metformin HCl 0 mg 10/13/21 21:30 Metformin Hcl 500 Mg Tablet PO .COMPLEX RAVI Metoprolol Tartrate 0 mg 10/13/21 21:30 Metoprolol Tartrate 50 Mg Tablet PO .COMPLEX RAVI Morphine Sulfate 4 mg 10/13/21 21:04 Morphine Sulfate 4 Mg/Ml Syringe IVP Q6H PRN severe pain Nicotine 1 patch 10/13/21 21:30 Nicotine 14 Mg Patch.Td24 TD QDAY [facility] Non-Formulary Medication 400 mg 10/14/21 09:00 Gabapentin PO TID RAVI Omeprazole 0 mg 10/13/21 21:30 Omeprazole 20 Mg Capsule.Dr PO .COMPLEX RAVI Ondansetron HCl 4 mg 10/13/21 21:04 Ondansetron Hcl/Pf 4 Mg/2 Ml Sdv IVP Q6H PRN Nausea / Vomiting Prazosin HCl 4 mg 10/13/21 21:30 Prazosin Hcl 1 Mg Capsule PO QHS [facility] Quetiapine Fumarate 300 mg 10/13/21 21:30 Quetiapine Fumarate 100 Mg Tablet PO QHS [facility] Discontinued Medications Generic Name Dose Route Start Last Admin Trade Name Freq PRN Reason Stop Dose Admin Sodium Chloride 1,000 mls @ 1,000 mls/hr 10/13/21 15:54 10/13/21 18:03 Sodium Chloride IV 10/13/21 16:53 1,000 mls/hr BOLUS STA Administration CEFTRIAXONE/D5W 1 GM PREMIX 1 gm in 50 mls @ 75 mls/hr 10/13/21 19:28 10/13/21 19:51 Rocephin 1 Gm/50 Ml D5w IV 10/13/21 20:07 75 mls/hr ONCE STA Administration Morphine Sulfate 4 mg 10/13/21 20:06 10/13/21 20:20 Morphine Sulfate 4 Mg/Ml Syringe IVP 10/13/21 20:07 4 mg ONCE ONE Administration Ondansetron HCl 4 mg 10/13/21 20:06 10/13/21 20:19 Ondansetron Hcl/Pf 4 Mg/2 Ml Sdv IVP 10/13/21 20:07 4 mg ONCE STA Administration Vital Signs: Temp Pulse Resp BP Pulse Ox 10/13/21 19:03 150/83 H 10/13/21 19:02 146/83 H 10/13/21 15:50 97.6 F 83 20 131/67 98 <ROMELIA THOMAS MD - Last Filed: 10/13/21 22:58> Course Orders, Labs, Meds: Lab Review 10/13/21 10/13/21 10/13/21 16:36 16:36 16:36 WBC 7.08 RBC 3.67 L Hgb 11.7 L Hct 35.4 L MCV 96.5 MCH 31.9 H MCHC 33.1 RDW Coeff of Leon 12.3 Plt Count 254 Immature Gran % (Auto) 0.1 Neut % (Auto) 55.2 Lymph % (Auto) 29.7 [place] % (Auto) 8.3 Eos % (Auto) 5.9 Baso % (Auto) 0.8 Neut # (Auto) 3.9 Lymph # (Auto) 2.1 [place] # (Auto) 0.6 Eos # (Auto) 0.4 Baso # (Auto) 0.1 Immature Gran # (Auto) 0.0 PT INR Sodium 140.0 Potassium 3.98 Chloride 106.2 Carbon Dioxide 23.2 Anion Gap 14.58 BUN 14.2 Creatinine 0.58 L Estimated GFR (MDRD) 106.00 BUN/Creatinine Ratio 24.48 Glucose 112.0 H Lactic Acid 2.24 H Calcium 10.12 Total Bilirubin 0.26 AST 22.9 ALT 15.2 Alkaline Phosphatase 42.8 L Troponin I < 0.012 Total Protein 7.30 Albumin 4.25 Globulin 3.05 Albumin/Globulin Ratio 1.39 Procalcitonin Urine Color Urine Clarity Urine pH Ur Specific [place] Urine Protein Urine Glucose (UA) Urine Ketones Urine Blood Urine Nitrite Urine Bilirubin Urine Urobilinogen Ur Leukocyte Esterase Urine Microscopic RBC Urine Microscopic WBC Ur Squamous Epith Cells Urine Bacteria Urine Opiates Screen Ur Oxycodone Screen Urine Methadone Screen Ur Propoxyphene Screen Ur Barbiturates Screen U Tricyclic Antidepress Ur Phencyclidine Scrn Ur Amphetamine Screen U Methamphetamines Scrn U Benzodiazepines Scrn Urine Cocaine Screen U Cannabinoids Screen Plasma/Serum Alcohol < 10.0 SARS CoV-2 RNA Rapid SERGIO 10/13/21 10/13/21 10/13/21 16:36 16:36 17:30 WBC RBC Hgb Hct MCV MCH MCHC RDW Coeff of Leon Plt Count Immature Gran % (Auto) Neut % (Auto) Lymph % (Auto) [place] % (Auto) Eos % (Auto) Baso % (Auto) Neut # (Auto) Lymph # (Auto) [place] # (Auto) Eos # (Auto) Baso # (Auto) Immature Gran # (Auto) PT 10.4 INR 1.00 Sodium Potassium Chloride Carbon Dioxide Anion Gap BUN Creatinine Estimated GFR (MDRD) BUN/Creatinine Ratio Glucose Lactic Acid 3.06 H D Calcium Total Bilirubin AST ALT Alkaline Phosphatase Troponin I Total Protein Albumin Globulin Albumin/Globulin Ratio Procalcitonin < 0.05 Urine Color Urine Clarity Urine pH Ur Specific [place] Urine Protein Urine Glucose (UA) Urine Ketones Urine Blood Urine Nitrite Urine Bilirubin Urine Urobilinogen Ur Leukocyte Esterase Urine Microscopic RBC Urine Microscopic WBC Ur Squamous Epith Cells Urine Bacteria Urine Opiates Screen Ur Oxycodone Screen Urine Methadone Screen Ur Propoxyphene Screen Ur Barbiturates Screen U Tricyclic Antidepress Ur Phencyclidine Scrn Ur Amphetamine Screen U Methamphetamines Scrn U Benzodiazepines Scrn Urine Cocaine Screen U Cannabinoids Screen Plasma/Serum Alcohol SARS CoV-2 RNA Rapid SERGIO 10/13/21 10/13/21 10/13/21 17:30 19:04 19:04 WBC RBC Hgb Hct MCV MCH MCHC RDW Coeff of Leon Plt Count Immature Gran % (Auto) Neut % (Auto) Lymph % (Auto) [place] % (Auto) Eos % (Auto) Baso % (Auto) Neut # (Auto) Lymph # (Auto) [place] # (Auto) Eos # (Auto) Baso # (Auto) Immature Gran # (Auto) PT INR Sodium Potassium Chloride Carbon Dioxide Anion Gap BUN Creatinine Estimated GFR (MDRD) BUN/Creatinine Ratio Glucose Lactic Acid Calcium Total Bilirubin AST ALT Alkaline Phosphatase Troponin I < 0.012 Total Protein Albumin Globulin Albumin/Globulin Ratio Procalcitonin Urine Color Yellow Urine Clarity Clear Urine pH 5.5 Ur Specific [place] 1.020 Urine Protein Negative Urine Glucose (UA) Negative Urine Ketones Negative Urine Blood Trace-intact H Urine Nitrite Negative Urine Bilirubin Negative Urine Urobilinogen 0.2 Ur Leukocyte Esterase 1+ H Urine Microscopic RBC 0-2 Urine Microscopic WBC 20-30 Ur Squamous Epith Cells 0-2 Urine Bacteria 3+ Urine Opiates Screen Negative Ur Oxycodone Screen Negative Urine Methadone Screen Negative Ur Propoxyphene Screen Negative Ur Barbiturates Screen Negative U Tricyclic Antidepress Positive H Ur Phencyclidine Scrn Negative Ur Amphetamine Screen Negative U Methamphetamines Scrn Negative U Benzodiazepines Scrn Positive H Urine Cocaine Screen Negative U Cannabinoids Screen Negative Plasma/Serum Alcohol SARS CoV-2 RNA Rapid SERGIO 10/13/21 19:57 WBC RBC Hgb Hct MCV MCH MCHC RDW Coeff of Leon Plt Count Immature Gran % (Auto) Neut % (Auto) Lymph % (Auto) [place] % (Auto) Eos % (Auto) Baso % (Auto) Neut # (Auto) Lymph # (Auto) [place] # (Auto) Eos # (Auto) Baso # (Auto) Immature Gran # (Auto) PT INR Sodium Potassium Chloride Carbon Dioxide Anion Gap BUN Creatinine Estimated GFR (MDRD) BUN/Creatinine Ratio Glucose Lactic Acid Calcium Total Bilirubin AST ALT Alkaline Phosphatase Troponin I Total Protein Albumin Globulin Albumin/Globulin Ratio Procalcitonin Urine Color Urine Clarity Urine pH Ur Specific [place] Urine Protein Urine Glucose (UA) Urine Ketones Urine Blood Urine Nitrite Urine Bilirubin Urine Urobilinogen Ur Leukocyte Esterase Urine Microscopic RBC Urine Microscopic WBC Ur Squamous Epith Cells Urine Bacteria Urine Opiates Screen Ur Oxycodone Screen Urine Methadone Screen Ur Propoxyphene Screen Ur Barbiturates Screen U Tricyclic Antidepress Ur Phencyclidine Scrn Ur Amphetamine Screen U Methamphetamines Scrn U Benzodiazepines Scrn Urine Cocaine Screen U Cannabinoids Screen Plasma/Serum Alcohol SARS CoV-2 RNA Rapid SERGIO Negative Orders Category Date Time Status PLACE PATIENT OBSERVATION .TO MEDSURG (MONITORED BED ADMISSION 10/13/21 21:04 Active ) EKG-(ED ONLY) Stat CARDIO 10/13/21 15:51 Completed ACTIVITY .Up With Assistance CARE 10/13/21 21:04 Active BLOOD GLUCOSE MONITORING (MED/SURG) 0630,1100,1700,2100 CARE 10/13/21 21:06 Active GIVE HS SNACK 2100 CARE 10/13/21 21:06 Active INTAKE & OUTPUT Q8HR CARE 10/13/21 21:05 Active TELEMETRY MONITORING TELE CARE 10/13/21 21:05 Active VITAL SIGNS Q4HR CARE 10/13/21 21:05 Active ADA 1800 DAVID. DIET DIETARY 10/13/21 Breakfast Ordered HS SNACK DIETARY 10/13/21 Dinner Ordered Orthostatic Vital Signs [ED ORTHOSTATIC VITAL SIGNS] . EMERGENCY 10/13/21 17:18 Active ONCE BASIC METABOLIC PANEL DAILY@0600 LAB 10/14/21 06:00 Ordered BASIC METABOLIC PANEL DAILY@0600 LAB 10/15/21 06:00 Ordered BLOOD ALCOHOL Stat LAB 10/13/21 16:36 Completed BLOOD CULTURE (ED ONLY) Stat LAB 10/13/21 19:43 Received CBC W/ AUTO DIFF DAILY@0600 LAB 10/14/21 06:00 Ordered CBC W/ AUTO DIFF DAILY@0600 LAB 10/15/21 06:00 Ordered CBC W/ AUTO DIFF Stat LAB 10/13/21 16:36 Completed CMP [COMPREHENSIVE METABOLIC PANEL] Stat LAB 10/13/21 16:36 Completed CREATINE KINASE Q8H LAB 10/14/21 03:15 Ordered CREATINE KINASE Q8H LAB 10/14/21 11:15 Ordered DRUG SCREEN, URINE, RAPID Stat LAB 10/13/21 19:04 Completed LACTIC ACID Stat LAB 10/13/21 16:36 Completed LACTIC ACID Stat LAB 10/13/21 17:30 Completed PROCALCITONIN Stat LAB 10/13/21 16:36 Completed PT WITH INR Stat LAB 10/13/21 16:36 Completed SARS COV-2 RNA RAPID SERGIO Stat LAB 10/13/21 19:57 Completed TROPONIN I Q8H LAB 10/14/21 03:15 Ordered TROPONIN I Q8H LAB 10/14/21 11:15 Ordered TROPONIN I Stat LAB 10/13/21 16:36 Completed TROPONIN I Stat LAB 10/13/21 17:30 Completed URINALYSIS C & S IF INDICATED Stat LAB 10/13/21 19:04 Completed URINE CULTURE Stat LAB 10/13/21 19:28 Received Acetaminophen [Tylenol] MEDS 10/13/21 21:04 Ordered 650 mg PO Q4H PRN Benztropine Mesylate [Cogentin] MEDS 10/14/21 09:00 Ordered 0.5 mg PO BID Ceftriaxone/D5w 1 gm Premix [Rocephin 1 gm/50 ml D5w] MEDS 10/14/21 09:00 Ordered 1 gm in 50 ml IV DAILY Ceftriaxone/D5w 1 gm Premix [Rocephin 1 gm/50 ml D5w] MEDS 10/13/21 19:28 Discontinued 1 gm in 50 ml IV ONCE Duloxetine HCl [Cymbalta] MEDS 10/14/21 09:00 Ordered 60 mg PO BID Enoxaparin Sodium [Lovenox] MEDS 10/14/21 09:00 Ordered 40 mg SUBCUT DAILY Fenofibrate [Triglide] MEDS 10/13/21 21:30 Ordered See Dose Instructions PO .COMPLEX Hydrocodone Bit/Acetaminophen [[place] 5-325] MEDS 10/13/21 21:04 Ordered 1 tab PO Q6H PRN Hydroxyzine HCl [Atarax] MEDS 10/13/21 21:09 Ordered 25 mg PO TID PRN Lovastatin [Mevacor] MEDS 10/13/21 21:30 Ordered See Dose Instructions PO .COMPLEX Metformin HCl [Glucophage] MEDS 10/13/21 21:30 Ordered See Dose Instructions PO .COMPLEX Metoprolol Tartrate [Lopressor] MEDS 10/13/21 21:30 Ordered See Dose Instructions PO .COMPLEX Morphine Sulfate [Morphine 4 mg/ml Syringe] MEDS 10/13/21 20:06 Discontinued 4 mg IVP ONCE ONE Morphine Sulfate [Morphine 4 mg/ml Syringe] MEDS 10/13/21 21:04 Ordered 4 mg IVP Q6H PRN Nicotine 14 mg [Nicoderm 14 mg] MEDS 10/13/21 21:30 Ordered 1 patch TD QDAY Omeprazole [Prilosec] MEDS 10/13/21 21:30 Ordered See Dose Instructions PO .COMPLEX Ondansetron HCl/Pf [Zofran 4 mg/2 ml] MEDS 10/13/21 20:06 Discontinued 4 mg IVP ONCE STA Ondansetron HCl/Pf [Zofran 4 mg/2 ml] MEDS 10/13/21 21:04 Ordered 4 mg IVP Q6H PRN Prazosin HCl [Minipress] MEDS 10/13/21 21:30 Ordered 4 mg PO QHS Quetiapine Fumarate [Seroquel] MEDS 10/13/21 21:30 Ordered 300 mg PO QHS Sodium Chloride 0.9% [Sodium Chloride] 1,000 ml MEDS 10/13/21 21:30 Active IV 125 mls/hr Sodium Chloride 0.9% [Sodium Chloride] 1,000 ml MEDS 10/13/21 15:54 Discontinued IV BOLUS gabapentin MEDS 10/14/21 09:00 Ordered 400 mg PO TID RESUSCITATION STATUS Routine OTHERS 10/13/21 21:04 Ordered CHEST, 1V AP ONLY Stat RADS 10/13/21 15:[address] ABDOMEN/PELVIS WO CONTRAST Stat RADS 10/13/21 15:[address] CERVICAL SPINE W/O CONTRAST Stat RADS 10/13/21 15:[address] CHEST W/O CONTRAST Stat RADS 10/13/21 15:[address] HEAD W/O CONTRAST Stat RADS 10/13/21 15:51 Completed SHOULDER, LEFT MIN 2V Stat RADS 10/13/21 15:51 Completed Medications Generic Name Dose Route Start Last Admin Trade Name Freq PRN Reason Stop Dose Admin Acetaminophen 650 mg 10/13/21 21:04 Acetaminophen 325 Mg Tablet PO Q4H PRN Fever and Mild Pain Hydrocodone Bitart/Acetaminophen 1 tab 10/13/21 21:04 Hydrocodone Bit/Acetaminophen 5/325 Mg Tablet PO Q6H PRN MODERATE PAIN Benztropine Mesylate 0.5 mg 10/14/21 09:00 Benztropine Mesylate 1 Mg Tablet PO BID RAVI Duloxetine HCl 60 mg 10/14/21 09:00 Duloxetine Hcl 30 Mg Capsule.Dr PO BID RAVI Enoxaparin Sodium 40 mg 10/14/21 09:00 Enoxaparin Sodium 40 Mg/0.4 Ml Syr SUBCUT DAILY RAVI Fenofibrate 0 mg 10/13/21 21:30 Fenofibrate 160 Mg Tablet PO .COMPLEX RAVI Hydroxyzine HCl 25 mg 10/13/21 21:09 Hydroxyzine Hcl 25 Mg Tablet PO TID PRN anxiety Sodium Chloride 1,000 mls @ 125 mls/hr 10/13/21 21:30 10/13/21 22:50 Sodium Chloride IV 125 mls/hr .Q8H RAVI Administration CEFTRIAXONE/D5W 1 GM PREMIX 1 gm in 50 mls @ 75 mls/hr 10/14/21 09:00 Rocephin 1 Gm/50 Ml D5w IV 10/17/21 08:59 DAILY RAVI Lovastatin 0 mg 10/13/21 21:30 Lovastatin 20 Mg Tablet PO .COMPLEX RAVI Metformin HCl 0 mg 10/13/21 21:30 Metformin Hcl 500 Mg Tablet PO .COMPLEX RAVI Metoprolol Tartrate 0 mg 10/13/21 21:30 Metoprolol Tartrate 50 Mg Tablet PO .COMPLEX RAVI Morphine Sulfate 4 mg 10/13/21 21:04 Morphine Sulfate 4 Mg/Ml Syringe IVP Q6H PRN severe pain Nicotine 1 patch 10/13/21 21:30 Nicotine 14 Mg Patch.Td24 TD QDAY RAVI Non-Formulary Medication 400 mg 10/14/21 09:00 Gabapentin PO TID RAVI Omeprazole 0 mg 10/13/21 21:30 Omeprazole 20 Mg Capsule. PO .COMPLEX RAVI Ondansetron HCl 4 mg 10/13/21 21:04 Ondansetron Hcl/Pf 4 Mg/2 Ml Sdv IVP Q6H PRN Nausea / Vomiting Prazosin HCl 4 mg 10/13/21 21:30 Prazosin Hcl 1 Mg Capsule PO QHS [facility] Quetiapine Fumarate 300 mg 10/13/21 21:30 Quetiapine Fumarate 100 Mg Tablet PO QHS [facility] Discontinued Medications Generic Name Dose Route Start Last Admin Trade Name Freq PRN Reason Stop Dose Admin Sodium Chloride 1,000 mls @ 1,000 mls/hr 10/13/21 15:54 10/13/21 18:03 Sodium Chloride IV 10/13/21 16:53 1,000 mls/hr BOLUS STA Administration CEFTRIAXONE/D5W 1 GM PREMIX 1 gm in 50 mls @ 75 mls/hr 10/13/21 19:28 10/13/21 19:51 Rocephin 1 Gm/50 Ml D5w IV 10/13/21 20:07 75 mls/hr ONCE STA Administration Morphine Sulfate 4 mg 10/13/21 20:06 10/13/21 20:20 Morphine Sulfate 4 Mg/Ml Syringe IVP 10/13/21 20:07 4 mg ONCE ONE Administration Ondansetron HCl 4 mg 10/13/21 20:06 10/13/21 20:19 Ondansetron Hcl/Pf 4 Mg/2 Ml Sdv IVP 10/13/21 20:07 4 mg ONCE STA Administration Vital Signs: Temp Pulse Resp BP Pulse Ox 10/13/21 19:03 150/83 H 10/13/21 19:02 146/83 H 10/13/21 15:50 97.6 F 83 20 131/67 98 Discharge Plan Discharge ED Provider: GIORGIO MCINTOSH <GIORGIO MCINTOSH MD - Last Filed: 10/13/21 18:19> Physician Progress Note: care to Dr Thomas at 19:00 []
--- NOTE | 2021-10-13 16:36 | CT ---
Exam: Chest CT without contrast. Technique: Chest CT was performed without contrast. Multiplanar reformats were made. History: Fall. Comparison: CT chest 05/08/2020. FINDINGS: Lungs/Pleura: No acute lung injury or pneumothorax. Trace dependent atelectasis in the lower lobes. No pleural effusion. Mediastinum: No hematoma. Cardiovascular: No pericardial effusion. Calcified atherosclerosis of the aorta and coronaries. No ev idence of aortic injury. 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 Chest wall, thoracic inlet, and axillae: No hematoma or mass. Imaged upper abdomen and GE junction: Cholelithiasis. Bones: No acute fracture. IMPRESSION: 1. No acute chest injury. 2. Calcific atherosclerosis. 3. Cholelithiasis. All CT scans are performed using dose optimization techniques as appropriate to the performed exam an d include at least one of the following: Automated exposure control, adjustment of the mA and/or kV according t o size, and the use of iterative reconstruction technique.
--- NOTE | 2021-10-13 16:37 | CT ---
EXAM: CT cervical spine without contrast. HISTORY: Fall COMPARISON: CT cervical spine 09/15/2027 TECHNIQUE: Serial axial images of the cervical spine were obtained from the skull base through the l maricel apices without contrast. These were viewed in multiple planes. FINDINGS: Vertebral bodies demonstrate straightening of the cervical spine. There is no acute compr ession fracture or subluxation. There is narrowing of the disc space at C4 through C7 with anterior posterior disc osteophytes. Moderate facet arthropathy is noted and most pronounced on the right. T here is no central or neural foraminal narrowing. IMPRESSION: 1. No acute compression fracture or subluxation. 2. Moderate multilevel degenerative disease of the cervical spine. No significant interval change when compared to prior examination. All CT scans are performed using dose optimization techniques as appropriate to the performed exam an d include at least one of the following: Automated exposure control, adjustment of the mA and/or kV according t o size, and the use of iterative reconstruction technique.
--- NOTE | 2021-10-13 16:37 | CT ---
EXAM: CT head without contrast TECHNIQUE: Noncontrast CT of the head with multiple reformats. HISTORY: Near syncope. Fall. COMPARISON: CT head 09/15/2019. FINDINGS: No evidence of acute infarction, hemorrhage, or mass. Mild brain volume loss. Mild nonspecific white matter hypodensities likely due to chronic microvascu lar ischemic changes. Calcific atherosclerosis of the carotid siphons and left vertebral artery. No brain herniation. Patent basilar cisterns. Ventricles are proportional to brain volume. No acute osseous abnormality. Orbits are unremarkable. Moderate congestion and mucosal thickening in the paranasal sinuses. IMPRESSION: 1. No acute intracranial abnormality. 2. Moderate sinus congestion suggests sinusitis. 3. Senescent changes. All CT scans are performed using dose optimization techniques as appropriate to the performed exam an d include at least one of the following: Automated exposure control, adjustment of the mA and/or kV according t o size, and the use of iterative reconstruction technique.
--- NOTE | 2021-10-13 16:41 | CT ---
EXAM: CT of the abdomen and pelvis without contrast. TECHNIQUE: CT of the abdomen and pelvis was performed without the use of contrast. Multiplanar refo rmats were performed. HISTORY: Fall. Near-syncope. COMPARISON: CT abdomen pelvis 05/08/2020. FINDINGS: Evaluation of solid organs and blood vessels is suboptimal without the benefit of contrast. Imaged lower thorax: Coronary calcifications. Liver: Unremarkable. Gallbladder/Bile Ducts: No biliary dilation. Cholelithiasis. Spleen: Unremarkable. Pancreas: Unremarkable. Adrenals: Unremarkable. Kidneys/Ureters: Right renal stones measure up to 10 mm. No stone in the ureters or hydronephrosis. No evidence of renal injury. Bowel/mesentery/peritoneum: No evidence of bowel injury. No mesenteric hematoma. Colonic diverticulo sis. No free air of ascites. Retroperitoneum/vessels: No aortic aneurysm. Extensive calcified atheromatous plaques. No evidence o f abdominal aortic injury or retroperitoneal hematoma. Pelvis: Post hysterectomy. No pelvic hematoma. Bones/body wall: No acute fracture. Multilevel degenerative changes of the lumbar spine. Transition al lumbosacral anatomy. IMPRESSION: 1. No acute injury in the abdomen pelvis. 2. Cholelithiasis. 3. Right renal stones measure up to 10 mm. 4. Colonic diverticulosis. 5. Extensive calcific atherosclerosis and coronary calcifications. All CT scans are performed using dose optimization techniques as appropriate to the performed exam an d include at least one of the following: Automated exposure control, adjustment of the mA and/or kV according t o size, and the use of iterative reconstruction technique.
[2021-10-13 16:42] LABS: BASOPHILS # (AUTO) 0.1 K/uL (0-0.2); BASOPHILS % (AUTO) 0.8 % (0.0-3.0); EOSINOPHILS # (AUTO) 0.4 K/ul (0.0-0.7); EOSINOPHILS % (AUTO) 5.9 % (0.0-7.0); HEMATOCRIT 35.4 % (37.0-47.0); HEMOGLOBIN 11.7 g/dl (12.0-16.0); IMMATURE GRANULOCYTE % (AUTO) 0.1 % (0.0-5.0); LYMPHOCYTES # (AUTO) 2.1 K/uL (0.60-3.4); LYMPHOCYTES % (AUTO) 29.7 (10.0-50.0); MEAN CORPUSCULAR HEMOGLOBIN 31.9 pg (27.0-31.0); MEAN CORPUSCULAR HGB CONC 33.1 (31.8-35.4); MEAN CORPUSCULAR VOLUME 96.5 fl (81.0-99.0); MONOCYTES # (AUTO) 0.6 K/uL (0.4-2.0); MONOCYTES % (AUTO) 8.3 (0-10); NEUTROPHILS # (AUTO) 3.9 K/ul (2.0-6.9); NEUTROPHILS % (AUTO) 55.2 % (42.2-75.2); PLATELET COUNT 254 10^3/uL (140-440); RDW COEFFICIENT OF VARIATION 12.3 % (11.6-14.8); RED BLOOD COUNT 3.67 10^6/ul (4.20-5.40); WHITE BLOOD COUNT 7.08 K/ul (4.6-10.2)
--- NOTE | 2021-10-13 16:43 | DI ---
EXAM: Single AP view of the chest HISTORY: Fall. COMPARISON: Chest x-ray 01/15/2018 FINDINGS: Cardiomediastinal silhouette is unremarkable. There is no pneumothorax or effusion. There is no consolidation, nodule or mass. The osseous structures are unremarkable. IMPRESSION: No acute cardiopulmonary process
--- NOTE | 2021-10-13 16:43 | DI ---
EXAM: Left shoulder, three views HISTORY: Fall fall COMPARISON: 10/13/2021. FINDINGS / IMPRESSION: The visualized osseous structures appear intact. Anatomic alignment appears within normal limits. There is no evidence of fracture or dislocation. Mild chronic osteoarthritic degenerative change. No acute osseous abnormality.
[2021-10-13 16:53] LABS: PROTHROMBIN TIME 10.4 SEC (9.3-11.0)
[2021-10-13 17:02] LABS: ALANINE AMINOTRANSFERASE 15.2 U/L (0-35); ALBUMIN 4.25 g/dL (3.5-5.0); ALKALINE PHOSPHATASE 42.8 U/L (53-141); ASPARTATE AMINO TRANSFERASE 22.9 U/L (14-36); BILIRUBIN,TOTAL 0.26 mg/dL (0.2-1.3); BLOOD UREA NITROGEN 14.2 mg/dL (7-17); CALCIUM 10.12 mg/dL (8.4-10.2); CARBON DIOXIDE 23.2 mmol/L (22-30.0); CHLORIDE 106.2 mmol/L (98-107); CREATININE 0.58 mg/dL (0.60-1.30); POTASSIUM 3.98 mmol/L (3.5-5.1)
[2021-10-13 17:03] LABS: BLOOD ALCOHOL < 10.0 mg/dL (0.0-50.0)
[2021-10-13 17:11] LABS: TROPONIN I < 0.012 ng/ml (0.0000-0.120)
[2021-10-13 19:23] LABS: BILIRUBIN,URINE Negative (NEGATIVE); CLARITY,URINE Clear (CLEAR); COLOR,URINE Yellow (YELLOW); GLUCOSE, URINE (UA) Negative (NEGATIVE); KETONES,URINE Negative (NEGATIVE); LEUKOCYTE ESTERASE ,URINE 1+ (NEGATIVE); NITRITE,URINE Negative (NEGATIVE); PH,URINE 5.5 (5-9); PROTEIN,URINE Negative (NEGATIVE); URINE, BLOOD Trace-intact (NEGATIVE); UROBILINOGEN,URINE 0.2 (0.2)
[2021-10-13 19:27] LABS: BACTERIA,URINE 3+ (NOT PRESENT); SQUAMOUS EPITHELIAL CELL,UR 0-2 (0-5); URINE RBC, MICROSCOPIC 0-2 (0-2); URINE WBC, MICROSCOPIC 20-30 (0-2)
[2021-10-13] MEDS ORDERED: ROCEPHIN 1 GM/50 ML D5W 1 GM/50 ML BAG IV STA (19:28)
[2021-10-13 19:29] LABS: BENZODIAZEPINES SCREEN,URINE POSITIVE (NEGATIVE)
[2021-10-13 19:30] LABS: AMPHETAMINE SCREEN,URINE NEGATIVE (NEGATIVE); BARBITURATE SCREEN,URINE NEGATIVE (NEGATIVE); CANNABINOID SCREEN,URINE NEGATIVE (NEGATIVE); COCAIN SCREEN,URINE NEGATIVE (NEGATIVE); METHADONE URINE SCREEN NEGATIVE (NEGATIVE); METHAMPHETAMINES SCREEN,URINE NEGATIVE (NEGATIVE); OPIATE SCREEN,URINE NEGATIVE (NEGATIVE); OXYCODONE URINE SCREEN NEGATIVE (NEGATIVE); PHENCYCLIDINE SCREEN,URINE NEGATIVE (NEGATIVE); PROPOXYPHENE URINE SCREEN NEGATIVE (NEGATIVE); TRICYCLIC ANTIDEPRESSANTS URIN POSITIVE (NEGATIVE)
[2021-10-13] MEDS ORDERED: ZOFRAN 4 MG/2 ML IVP STA (20:06)
[2021-10-13] MEDS ORDERED: MORPHINE 4 MG/ML SYRINGE IVP ONE (20:06)
[2021-10-13] MEDS ORDERED: TYLENOL PO PRN (21:04)
[2021-10-13] MEDS ORDERED: ZOFRAN 4 MG/2 ML IVP PRN (21:04)
[2021-10-13] MEDS ORDERED: NORCO 5-325 PO PRN (21:04)
[2021-10-13] MEDS ORDERED: ATARAX PO PRN (21:09)
[2021-10-13] MEDS: SODIUM CHLORIDE 1,000 ML IV SCH (22:50)
[2021-10-13 23:06] VITALS: BMI 30.9
[2021-10-14] MEDS: MORPHINE 4 MG/ML SYRINGE IVP PRN ×2 (00:28→05:58)
[2021-10-14] MEDS ORDERED: SEROQUEL PO SCH (01:30)
[2021-10-14] MEDS ORDERED: MINIPRESS PO SCH (01:30)
[2021-10-14] MEDS ORDERED: MEVACOR PO SCH (01:45)
[2021-10-14 03:22] LABS: BASOPHILS # (AUTO) 0.1 K/uL (0-0.2); BASOPHILS % (AUTO) 0.9 % (0.0-3.0); EOSINOPHILS # (AUTO) 0.4 K/ul (0.0-0.7); EOSINOPHILS % (AUTO) 6.8 % (0.0-7.0); HEMATOCRIT 33.5 % (37.0-47.0); HEMOGLOBIN 10.9 g/dl (12.0-16.0); IMMATURE GRANULOCYTE % (AUTO) 0.3 % (0.0-5.0); LYMPHOCYTES # (AUTO) 2.4 K/uL (0.60-3.4); LYMPHOCYTES % (AUTO) 36.9 (10.0-50.0); MEAN CORPUSCULAR HEMOGLOBIN 31.6 pg (27.0-31.0); MEAN CORPUSCULAR HGB CONC 32.5 (31.8-35.4); MEAN CORPUSCULAR VOLUME 97.1 fl (81.0-99.0); MONOCYTES # (AUTO) 0.6 K/uL (0.4-2.0); MONOCYTES % (AUTO) 9.9 (0-10); NEUTROPHILS # (AUTO) 2.9 K/ul (2.0-6.9); NEUTROPHILS % (AUTO) 45.2 % (42.2-75.2); PLATELET COUNT 221 10^3/uL (140-440); RDW COEFFICIENT OF VARIATION 12.1 % (11.6-14.8); RED BLOOD COUNT 3.45 10^6/ul (4.20-5.40); WHITE BLOOD COUNT 6.37 K/ul (4.6-10.2)
[2021-10-14 03:32] LABS: CREATINE KINASE 40.5 U/L (30-135)
[2021-10-14 03:33] LABS: BLOOD UREA NITROGEN 9.2 mg/dL (7-17); CALCIUM 9.2 mg/dL (8.4-10.2); CARBON DIOXIDE 28.9 mmol/L (22-30.0); CHLORIDE 105.5 mmol/L (98-107); CREATININE 0.94 mg/dL (0.60-1.30); GLUCOSE 132.5 mg/dL (74-106); POTASSIUM 3.75 mmol/L (3.5-5.1); SODIUM 139.6 mmol/L (134.5-145)
[2021-10-14 03:52] LABS: TROPONIN I < 0.012 ng/ml (0.0000-0.120)
[2021-10-14] MEDS: SODIUM CHLORIDE 1,000 ML IV SCH (05:33)
[2021-10-14] MEDS ORDERED: PRILOSEC PO SCH (06:30)
[2021-10-14] MEDS ORDERED: LOVENOX SUBCUT SCH (09:00)
[2021-10-14] MEDS ORDERED: TRIGLIDE PO SCH (09:00)
[2021-10-14] MEDS ORDERED: NEURONTIN PO SCH ×3 (09:00→15:00)
[2021-10-14] MEDS ORDERED: COGENTIN PO SCH (09:00)
[2021-10-14] MEDS ORDERED: NICODERM 14 MG TD SCH (09:00)
[2021-10-14] MEDS ORDERED: CYMBALTA PO SCH (09:00)
[2021-10-14] MEDS ORDERED: LOPRESSOR PO SCH (09:00)
[2021-10-14] MEDS ORDERED: LEVAQUIN 500 MG/100 ML D5W 500 MG/100 ML BAG IV ONE (09:15)
[2021-10-14] MEDS: GLUCOPHAGE PO SCH ×2 (09:57→16:32)
[2021-10-14 11:24] LABS: CREATINE KINASE 36.9 U/L (30-135)
[2021-10-14 11:37] LABS: TROPONIN I < 0.012 ng/ml (0.0000-0.120)
[2021-10-14] MEDS ORDERED: ROCEPHIN 1 GM/50 ML D5W 1 GM/50 ML BAG IV ONE (16:17)
[2021-10-14 17:11] VITALS: BP 134/79; TEMP 98
[2021-10-14] MEDS ORDERED: ROCEPHIN 1 GM/50 ML D5W 1 GM/50 ML BAG IV SCH (21:00)
--- NOTE | 2021-10-20 01:03 | PCM.DC ---
Final Diagnosis: Discharge diagnosis - Near-syncope. UTI possible. Date of admit - 10/13/21 Date of discharge - 10/14/21 Physical Exam Appearance: Well-appearing and Obese Ill-appearing: None Pain Distress: None Eyes: JONO ENT: Oropharynx normal Neck: Supple Respiratory: Airway patent and Breath sounds clear Cardiovascular: RRR and Pulses normal GI/: Soft and Nontender Musculoskeletal: Normal strength and ROM intact Skin: Warm and Dry Neurological: Sensation intact, Motor intact and Alert Psychiatric: Affect appropriate, Mood appropriate and Other (odd affect) (1) Near syncope: Status: Acute Code(s): R55 - Syncope and collapse SNOMED Code(s): 628990773 (2) UTI (urinary tract infection): Status: Acute Code(s): N39.0 - Urinary tract infection, site not specified SNOMED Code(s): 21026990 Qualifiers: Urinary tract infection type: acute cystitis Hematuria presence: without hematuria Qualified Code(s): N30.00 - Acute cystitis without hematuria Reason for Hospitalization: Near syncopal episode, and UTI. Prognosis/Condition at Discharge: Stable. Good. Medications at Discharge: Ambulatory Orders Medication Instructions Recorded blood-glucose meter #180 un 12/06/15 blood sugar diagnostic (Blood #100 strip 06/04/18 Glucose Test) blood pressure monitor (Blood #1 each 11/20/19 Pressure Kit) acetaminophen 500 mg tablet 1,000 mg PO Q6H PRN tab 04/21/20 fenofibrate 160 mg tablet See Rx Instructions .ROUTE 06/17/21 .COMPLEX #90 unspecified nicotine 14 mg/24 hr daily 1 patch TRANSDERMAL QDAY #28 ea 07/18/21 transdermal patch omeprazole 20 mg capsule,delayed See Rx Instructions .ROUTE 08/10/21 release .COMPLEX #90 unspecified lovastatin 20 mg tablet See Rx Instructions .ROUTE 08/12/21 .COMPLEX #90 unspecified metformin 1,000 mg tablet See Rx Instructions .ROUTE 08/12/21 .COMPLEX #180 tab metoprolol tartrate 50 mg tablet See Rx Instructions .ROUTE 08/12/21 .COMPLEX #180 unspecified nicotine 7 mg/24 hr daily 1 patch TRANSDERMAL Q24H #14 ea 09/08/21 transdermal patch OneTouch Delica Plus Lancet 30 #100 ea NS 09/21/21 gauge (lancets) OneTouch Ultra Test (blood sugar #100 ea NS 09/21/21 diagnostic) benztropine 0.5 mg tablet 0.5 mg PO BID #60 tab 10/12/21 duloxetine 60 mg capsule,delayed 60 mg PO BID #60 cap 10/12/21 release gabapentin 400 mg capsule 400 mg PO TID #90 cap 10/12/21 hydroxyzine HCl 25 mg tablet 25 - 50 mg PO TID PRN #90 tab 10/12/21 naloxone 4 mg/actuation nasal 4 mg INTRANASAL Q2-3M PRN #2 ea 10/12/21 spray (Narcan) prazosin 2 mg capsule 4 mg PO QHS #60 cap 10/12/21 quetiapine 300 mg tablet 300 mg PO QHS #30 tab 10/12/21 nitrofurantoin 100 mg PO Q12H 7 Days #14 cap 10/14/21 monohydrate/macrocrystals 100 mg capsule (Macrobid) Lab/Diagnostics: Laboratory Tests 10/13/21 10/13/21 10/13/21 16:36 16:36 16:36 WBC 7.08 RBC 3.67 L Hgb 11.7 L Hct 35.4 L MCV 96.5 MCH 31.9 H MCHC 33.1 RDW Coeff of Leon 12.3 Plt Count 254 Immature Gran % (Auto) 0.1 Neut % (Auto) 55.2 Lymph % (Auto) 29.7 [place] % (Auto) 8.3 Eos % (Auto) 5.9 Baso % (Auto) 0.8 Neut # (Auto) 3.9 Lymph # (Auto) 2.1 Summers # (Auto) 0.6 Eos # (Auto) 0.4 Baso # (Auto) 0.1 Immature Gran # (Auto) 0.0 PT INR Sodium 140.0 Potassium 3.98 Chloride 106.2 Carbon Dioxide 23.2 Anion Gap 14.58 BUN 14.2 Creatinine 0.58 L Estimated GFR (MDRD) 106.00 BUN/Creatinine Ratio 24.48 Glucose 112.0 H Lactic Acid 2.24 H Calcium 10.12 Total Bilirubin 0.26 AST 22.9 ALT 15.2 Alkaline Phosphatase 42.8 L Total Creatine Kinase Troponin I < 0.012 Total Protein 7.30 Albumin 4.25 Globulin 3.05 Albumin/Globulin Ratio 1.39 Procalcitonin Urine Color Urine Clarity Urine pH Ur Specific [place] Urine Protein Urine Glucose (UA) Urine Ketones Urine Blood Urine Nitrite Urine Bilirubin Urine Urobilinogen Ur Leukocyte Esterase Urine Microscopic RBC Urine Microscopic WBC Ur Squamous Epith Cells Urine Bacteria Urine Opiates Screen Ur Oxycodone Screen Urine Methadone Screen Ur Propoxyphene Screen Ur Barbiturates Screen U Tricyclic Antidepress Ur Phencyclidine Scrn Ur Amphetamine Screen U Methamphetamines Scrn U Benzodiazepines Scrn Urine Cocaine Screen U Cannabinoids Screen Plasma/Serum Alcohol < 10.0 SARS CoV-2 RNA Rapid SERGIO 10/13/21 10/13/21 10/13/21 16:36 16:36 17:30 WBC RBC Hgb Hct MCV MCH MCHC RDW Coeff of Leon Plt Count Immature Gran % (Auto) Neut % (Auto) Lymph % (Auto) [place] % (Auto) Eos % (Auto) Baso % (Auto) Neut # (Auto) Lymph # (Auto) [place] # (Auto) Eos # (Auto) Baso # (Auto) Immature Gran # (Auto) PT 10.4 INR 1.00 Sodium Potassium Chloride Carbon Dioxide Anion Gap BUN Creatinine Estimated GFR (MDRD) BUN/Creatinine Ratio Glucose Lactic Acid 3.06 H D Calcium Total Bilirubin AST ALT Alkaline Phosphatase Total Creatine Kinase Troponin I Total Protein Albumin Globulin Albumin/Globulin Ratio Procalcitonin < 0.05 Urine Color Urine Clarity Urine pH Ur Specific [place] Urine Protein Urine Glucose (UA) Urine Ketones Urine Blood Urine Nitrite Urine Bilirubin Urine Urobilinogen Ur Leukocyte Esterase Urine Microscopic RBC Urine Microscopic WBC Ur Squamous Epith Cells Urine Bacteria Urine Opiates Screen Ur Oxycodone Screen Urine Methadone Screen Ur Propoxyphene Screen Ur Barbiturates Screen U Tricyclic Antidepress Ur Phencyclidine Scrn Ur Amphetamine Screen U Methamphetamines Scrn U Benzodiazepines Scrn Urine Cocaine Screen U Cannabinoids Screen Plasma/Serum Alcohol SARS CoV-2 RNA Rapid SERGIO 10/13/21 10/13/21 10/13/21 17:30 19:04 19:04 WBC RBC Hgb Hct MCV MCH MCHC RDW Coeff of Leon Plt Count Immature Gran % (Auto) Neut % (Auto) Lymph % (Auto) [place] % (Auto) Eos % (Auto) Baso % (Auto) Neut # (Auto) Lymph # (Auto) [place] # (Auto) Eos # (Auto) Baso # (Auto) Immature Gran # (Auto) PT INR Sodium Potassium Chloride Carbon Dioxide Anion Gap BUN Creatinine Estimated GFR (MDRD) BUN/Creatinine Ratio Glucose Lactic Acid Calcium Total Bilirubin AST ALT Alkaline Phosphatase Total Creatine Kinase Troponin I < 0.012 Total Protein Albumin Globulin Albumin/Globulin Ratio Procalcitonin Urine Color Yellow Urine Clarity Clear Urine pH 5.5 Ur Specific [place] 1.020 Urine Protein Negative Urine Glucose (UA) Negative Urine Ketones Negative Urine Blood Trace-intact H Urine Nitrite Negative Urine Bilirubin Negative Urine Urobilinogen 0.2 Ur Leukocyte Esterase 1+ H Urine Microscopic RBC 0-2 Urine Microscopic WBC 20-30 Ur Squamous Epith Cells 0-2 Urine Bacteria 3+ Urine Opiates Screen Negative Ur Oxycodone Screen Negative Urine Methadone Screen Negative Ur Propoxyphene Screen Negative Ur Barbiturates Screen Negative U Tricyclic Antidepress Positive H Ur Phencyclidine Scrn Negative Ur Amphetamine Screen Negative U Methamphetamines Scrn Negative U Benzodiazepines Scrn Positive H Urine Cocaine Screen Negative U Cannabinoids Screen Negative Plasma/Serum Alcohol SARS CoV-2 RNA Rapid SERGIO 10/13/21 10/14/21 10/14/21 19:57 03:15 03:15 WBC 6.37 RBC 3.45 L Hgb 10.9 L Hct 33.5 L MCV 97.1 MCH 31.6 H MCHC 32.5 RDW Coeff of Leon 12.1 Plt Count 221 Immature Gran % (Auto) 0.3 Neut % (Auto) 45.2 Lymph % (Auto) 36.9 [place] % (Auto) 9.9 Eos % (Auto) 6.8 Baso % (Auto) 0.9 Neut # (Auto) 2.9 Lymph # (Auto) 2.4 [place]mers # (Auto) 0.6 Eos # (Auto) 0.4 Baso # (Auto) 0.1 Immature Gran # (Auto) 0.0 PT INR Sodium Potassium Chloride Carbon Dioxide Anion Gap BUN Creatinine Estimated GFR (MDRD) BUN/Creatinine Ratio Glucose Lactic Acid Calcium Total Bilirubin AST ALT Alkaline Phosphatase Total Creatine Kinase 40.5 Troponin I < 0.012 Total Protein Albumin Globulin Albumin/Globulin Ratio Procalcitonin Urine Color Urine Clarity Urine pH Ur Specific [place] Urine Protein Urine Glucose (UA) Urine Ketones Urine Blood Urine Nitrite Urine Bilirubin Urine Urobilinogen Ur Leukocyte Esterase Urine Microscopic RBC Urine Microscopic WBC Ur Squamous Epith Cells Urine Bacteria Urine Opiates Screen Ur Oxycodone Screen Urine Methadone Screen Ur Propoxyphene Screen Ur Barbiturates Screen U Tricyclic Antidepress Ur Phencyclidine Scrn Ur Amphetamine Screen U Methamphetamines Scrn U Benzodiazepines Scrn Urine Cocaine Screen U Cannabinoids Screen Plasma/Serum Alcohol SARS CoV-2 RNA Rapid SERGIO Negative 10/14/21 10/14/21 03:15 11:09 WBC RBC Hgb Hct MCV MCH MCHC RDW Coeff of Leon Plt Count Immature Gran % (Auto) Neut % (Auto) Lymph % (Auto) [place] % (Auto) Eos % (Auto) Baso % (Auto) Neut # (Auto) Lymph # (Auto) [place] # (Auto) Eos # (Auto) Baso # (Auto) Immature Gran # (Auto) PT INR Sodium 139.6 Potassium 3.75 Chloride 105.5 Carbon Dioxide 28.9 Anion Gap 8.95 BUN 9.2 Creatinine 0.94 Estimated GFR (MDRD) 61.00 BUN/Creatinine Ratio 9.78 Glucose 132.5 H Lactic Acid Calcium 9.20 Total Bilirubin AST ALT Alkaline Phosphatase Total Creatine Kinase 36.9 Troponin I < 0.012 Total Protein Albumin Globulin Albumin/Globulin Ratio Procalcitonin Urine Color Urine Clarity Urine pH Ur Specific [place] Urine Protein Urine Glucose (UA) Urine Ketones Urine Blood Urine Nitrite Urine Bilirubin Urine Urobilinogen Ur Leukocyte Esterase Urine Microscopic RBC Urine Microscopic WBC Ur Squamous Epith Cells Urine Bacteria Urine Opiates Screen Ur Oxycodone Screen Urine Methadone Screen Ur Propoxyphene Screen Ur Barbiturates Screen U Tricyclic Antidepress Ur Phencyclidine Scrn Ur Amphetamine Screen U Methamphetamines Scrn U Benzodiazepines Scrn Urine Cocaine Screen U Cannabinoids Screen Plasma/Serum Alcohol SARS CoV-2 RNA Rapid SERGIO Education Provided to Patient and Family: Per nursing staff. Follow-ups: With PCP in a few days. Discharge Disposition: Home Hospital Course: Admitted with near syncope. Never did pass out. Had some weakness and blood sugar elevated, placed in obs. Tentative dx of UTI, not septic. Subsequent culture not impressive. Remainer of work-up negative. Plan: Home for rest. Increase fluids. See PCP in a few days.
== END 2021-10-14 18:50 | disposition home or self-care (01) ==
LOC: MEDSURG A 15:48 → ED 15:48 → MEDSURG A 22:30
PROVIDERS: ADMIT Internal Medicine Geriatric Medicine; ATTEND Emergency Medicine
DX: M25.512 Pain in left shoulder; Y99.9 Unspecified external cause status; W19.XXXA Unspecified fall, initial encounter; Y93.9 Activity, unspecified; N30.00 Acute cystitis without hematuria; Y92.9 Unspecified place or not applicable; Z20.822 Contact with and (suspected) exposure to COVID-19; F17.210 Nicotine dependence, cigarettes, uncomplicated; B96.20 Unspecified Escherichia coli [E. coli] as the cause of diseases classified elsewhere; R55 Syncope and collapse; M25.50 Pain in unspecified joint